=== PATIENT | male | born 2000 | race Hispanic/Latino ===

== ENCOUNTER 2025-01-29 18:13 | Emergency (ER) | payer OTHER, SELFPAY ==
[2025-01-29 18:18] VITALS: BP 128/93
[2025-01-29 18:22] LABS: Glucose - Point of Care 524 mg/dl (70-99)
[2025-01-29 18:56] LABS: Venous Blood Gas B.E. 2.1 mmol/L (-4 to +4); Venous Blood Gas O2 Sat % 94.7 %
[2025-01-29 19:07] LABS: ALT (SGPT) 30 U/L (0-50); AST (SGOT) 20 U/L (17-59); Albumin 4.0 g/dl (3.5-5.0); Alkaline Phosphatase 178 U/L (38-126); Blood Urea Nitrogen 22 mg/dl (9-20); Calcium 8.9 mg/dl (8.4-10.2); Carbon Dioxide 29 mmol/L (22-30); Chloride 95 mmol/L (98-107); Glucose 512 mg/dl (70-99); Potassium 4.3 mmol/L (3.5-5.1); Sodium 128 mmol/L (135-145); Total Protein 7.0 g/dl (6.3-8.2); eGFR > 60.00
[2025-01-29 20:10] LABS: Hematocrit 37.3 % (39.0-52.0); Hemoglobin 14.2 g/dL (13.0-18.0); Mean Corp Hgb Conc. 38.1 g/dL (33.0-37.0); Mean Corpuscular Volume 81.4 fL (80.0-94.0); Platelet Count 284 10^3/uL (130-400); Red Cell Dist. Width 11.7 % (11.5-14.5)
[2025-01-29 20:11] LABS: Microcytosis 3+; Spherocytes 2+
[2025-01-29 20:12] LABS: Nucleated Red Blood Cells % 0 % (-)
[2025-01-29 20:13] LABS: Normal RBC Morphology No
[2025-01-29 21:09] VITALS: BP 116/86
[2025-01-29 21:14] VITALS: BMI 31.8
[2025-01-29] MEDS: NSS 1000 IV (21:39)
[2025-01-29 22:00] VITALS: BP 106/74
[2025-01-29 23:00] VITALS: BP 110/73
[2025-01-29 23:06] LABS: Glucose - Point of Care 335 mg/dl (70-99)
[2025-01-29] MEDS: NOVOLIN R 10 UNITS IV (23:06)
[2025-01-29] MEDS: NSS 500 IV (23:15)
[2025-01-29 23:30] VITALS: BP 107/68
[2025-01-29 23:48] LABS: Glucose - Point of Care 251 mg/dl (70-99)
[2025-01-30] VITALS: BP 106/79
--- NOTE | 2025-01-30 00:21 | ED.GENMED ---
History of Present Illness
General
Chief Complaint: Blood Sugar Problem
Source: patient
Exam Limitations: none
Time Seen by Provider: 01/29/25 22:08
Nursing documentation reviewed up to this point in time: agreed with
History of Present Illness
History of Present Illness:
Patient with history of type 2 diabetes, currently taking insulin based on sliding scale, presents to ED at the recommendation of his [employer], due to persistent elevated blood sugar along with an outpatient blood work that revealed elevated
hemoglobin A1c. Patient denies recent illness. Denies recent change in medications or diet. Denies headache or dizziness. Denies loss of appetite. Denies vomiting or diarrhea. Denies weakness.
Review of Systems
Review of Systems
Allergies reviewed?: Yes
All Other Systems: ROS reviewed and negative except as documented in HPI and ROS
Constitutional: Reports no symptoms; Denies fever
Respiratory: Reports no symptoms; Denies trouble breathing
Cardiac: Reports no symptoms; Denies chest pain or palpitations
ABD/GI: Reports no symptoms; Denies vomiting
: Reports no symptoms
Musculoskeletal: Reports no symptoms
Skin: Reports no symptoms
Neurological: Reports no symptoms
Phy Exam
Physical Exam
Physical Exam:
Physical Exam
General: no apparent distress, not acutely ill. afebrile
Head: nc/at. eomi
Neck: supple. no meningeal signs.
Heart: s1/s2 regular rate and rhythm
Lungs: no acute respiratory distress. clear bilaterally
Abdomen: normal bowel sounds. not tender. no distention
Neuro: alert and oriented x 3. no focal neurological deficits
Skin: no rash
Psychiatric: well kept. interactive and cooperative
Extremities: no edema. no calf tenderness.
Course
Orders/Labs/Results
Orders:
Orders
01/29/25 18:28
B-Hydroxybutyrate Urgent
Complete Blood Count/With Diff Urgent
Comprehensive Metabolic Panel Urgent
Venous Blood Gas Urgent
%Oxygen/Room Air: room air
01/29/25 21:38
0.9% Sodium Chloride 1000 ml [Nss] 1,000 ml IV BOLUS
01/29/25 22:57
Insulin Human Regular [Novolin R] 10 units IV NOW STA
01/29/25 23:15
0.9% Sodium Chloride 500 ml [Nss] 500 ml IV BOLUS
01/30/25 00:21
Insulin Human Regular [Novolin R] 6 units SC NOW STA
Abnormal Lab Results
01/29/25 01/29/25 01/29/25
18:20 18:28 23:04
RBC 4.58 L 10^6/uL
(4.70-6.10)
Hct 37.3 L %
(39.0-52.0)
MCHC 38.1 H g/dL
(33.0-37.0)
MPV 10.8 H fL
(7.4-10.4)
VBG pCO2 49 H mmHg
(35-48)
VBG pO2 70 H mmHg
(30-50)
VBG HCO3 28.3 H mmol/L
(22-27)
Sodium 128 L mmol/L
(135-145)
Chloride 95 L mmol/L
(98-107)
BUN 22 H mg/dl
(9-20)
Glucose 512 H* mg/dl
(70-99)
Alkaline Phosphatase 178 H U/L
(38-126)
B-Hydroxybutyrate 0.28 H mmol/L
(0.02-0.27)
POC Glucose 524 H* mg/dl 335 H mg/dl
(70-99) (70-99)
01/29/25
23:47
RBC
Hct
MCHC
MPV
VBG pCO2
VBG pO2
VBG HCO3
Sodium
Chloride
BUN
Glucose
Alkaline Phosphatase
B-Hydroxybutyrate
POC Glucose 251 H mg/dl
(70-99)
01/29/25 18:28
01/29/25 18:28
Vital Signs
Initial and Last Documented VS:
Initial Vital Signs
Temp Pulse Resp BP Pulse Ox
98.9 F 105 18 128/93 96
01/29/25 18:18 01/29/25 18:18 01/29/25 18:18 01/29/25 18:18 01/29/25 18:18
Last Documented Vital Signs
Temp Pulse Resp BP Pulse Ox
98.9 F 81 18 109/79 99
01/29/25 18:18 01/30/25 00:30 01/29/25 18:18 01/30/25 00:30 01/30/25 00:50
MDM/Problems Addressed
MDM/Problems Addressed:
Blood work significant for hyperglycemia, without anion gap. Patient given IV fluids along with insulin, with improvement of blood sugar. Otherwise patient remains afebrile, hemodynamically stable, and comfortable during observation. Patient
feels comfortable going home at this time, to the care of his family. He will contact his [employer] rep tomorrow morning to discuss his presentation, including potential modification of his medication. Patient will return to ED with worsening
symptoms.
*Pulse Oximetry
SaO2: 98
Oxygen Mode of Delivery: Room air
Patient hypoxic: no
*Critical Care Note
Total Time (30-74mins, 75-104mins- exclusive of procedures): Not Applicable
ED Attending Note
-
Portions of this chart may have been created with voice recognition software.� Occasional wrong word or��sound alike� substitutions may have occurred due to the inherent limitations of voice recognition software.
Discharge Plan
Departure
Patient Disposition: Home (Routine Discharge)
Date of Disposition: 01/30/25
Time of Disposition: 00:21
Patient with high blood pressure during this ER visit?: Yes
Condition: Fair
Discharge Problem:
Hyperglycemia
Instructions: High blood sugar in adults - ED (DC)
Referrals:
NONE,* [Family Provider, Internal Medicine]
Activity Restrictions/Additional Instructions:
As discussed, please check your blood sugar upon returning home from Emergency Department. Please discuss with your [employer] rep tomorrow regarding your medication regimen.
Interventions
Interventions:
*Risk Screen - Suicide Last Done: 01/29/25 21:11
*General Assessment Last Done: 01/29/25 21:11
*Neglect/Abuse Screening Last Done: 01/29/25 21:11
*ED- Fall Risk Assessment Last Done: 01/29/25 21:11
*ED COVID-19 Vaccine History Last Done: 01/29/25 21:11
*Nursing Disposition Last Done: 01/30/25 01:16
ED- Neurological Assessment Last Done: 01/29/25 21:11
Discharge Date and Time
Discharge Date/Time: 01/30/25 01:17
Print Language: KOREAN
[2025-01-30 00:30] VITALS: BP 109/79
[2025-01-30] MEDS: NOVOLIN R 6 UNITS SC (00:38)
== END 2025-01-30 01:17 | disposition home or self-care (01) ==
LOC: EMR 18:13
PROVIDERS: Emergency Medicine; EMERGENCY PHYSICIAN Emergency Medicine
DX: E11.65 Type 2 diabetes mellitus with hyperglycemia (principal); R03.0 Elevated blood-pressure reading, without diagnosis of hypertension
CPT/HCPCS: 99284; 96374; 96361 ×2; 96372; 80053; 82010; 82805; 82962; 85025